=== PATIENT | female | born 1990 | race African-American/Black ===

== ENCOUNTER 2017-05-12 02:50 | Emergency (ER) | payer BC ==
[2017-05-12] MEDS ORDERED: NORMAL SALINE 1,000 ML IV ONE ×2 (03:08→03:13)
[2017-05-12] MEDS ORDERED: diphenhydrAMINE HCL 50 MG/ML VIAL IV ONE (03:09)
[2017-05-12] MEDS ORDERED: METOCLOPRAMIDE HCL 5 MG/ML VIAL IV ONE (03:09)
[2017-05-12] MEDS ORDERED: diphenhydrAMINE HCL 50 MG/ML VIAL ONE (03:18)
[2017-05-12] MEDS ORDERED: METOCLOPRAMIDE HCL 5 MG/ML VIAL ONE (03:18)
--- NOTE | 2017-05-12 03:20 | ERNOTE ---
Medical Problem HPI - Narrative Date of Service: 05/12/17 - General Chief Complaint: Nausea/Vomiting Source: patient - Immun/Allergies/Home Medications Immunizations: IMMUNIZATION HX Immunizations Up to Date Yes History of Influenza Vaccine Yes Hx Pneumococcal Vaccination No Allergies/Adverse Reactions: Allergies No Known Allergies Allergy (Verified 03/03/15 16:23) Home Medications: HOME MEDICATIONS Vit#96/Ferrous Fum/FA [ S] 1 tab PO DAILY 04/17/13 [Last Taken 07/18/15 21:00 1 tab] - History of Present History Narrative: Complaints of N/V since Saturday. Denies any fevers, sometimes has chills. Currently 7 weeks and has been having morning sickness. No history of dysuria or frequency. Has been feeling fatigued, and light headed with standing. Timing: constant Severity: moderate Modifying Factors - (Improves): Present: other - nithing Modifying Factors - (Worsens): Present: movement Review of Systems - Review of Systems Constitutional: Present: fatigue EYE: Present: no symptoms reported ENT: Present: no symptoms reported Respiratory: Present: no symptoms reported Cardiology: Present: no symptoms reported Gastrointestinal/Abdominal: Present: no symptoms reported Genitourinary: Present: no symptoms reported Musculoskeletal: Present: no symptoms reported Skin: Present: no symptoms reported Neurological: Present: no symptoms reported Endocrine: Present: no symptoms reported Hematologic/Lymphatic: Present: no symptoms reported Psych: Present: no symptoms reported - Patient's Past Medical History Patient History - Medical: No pertinent hx Patient History - Cardiac/Respiratory: No pertinent hx Patient History - Cancer: No Hx of Cancer Patient History - Surgical Procedures: No surgical history Patient History - Other: None LMP (females 10-50): - Family History Grandfather-Maternal Family History - Medical: - Social History Living Situations: home Abuse History: No History of abuse Psych History: No pertinent hx Smoking Status: Never smoker Have you smoked in the past 12 months: No Do you dip or chew tobacco: No Alcohol Use: none Drug Use: none - Immunizations Immunizations Up to Date: Yes Hx Pneumococcal Vaccination: No History of Influenza Vaccine: Yes Physical Exam - Physical Exam Eye Exam: Normal inspection: bilateral Ears, Nose, Throat: Present: normal ENT inspection Neck: Present: normal inspection Respiratory: Present: no respiratory distress Cardiovascular/Chest: Present: regular rate, rhythm Gastrointestinal/Abdominal: Present: nontender Back Exam: Present: normal inspection Extremity Exam: Present: normal inspection Neurological Exam: Present: alert, oriented, normal mood/affect Skin Exam: Present: normal color Pelvic Exam: Present: discharge - cervix was closed. ED Progress - Results and Orders Patient's Lab Results:: I have reviewed the patient's lab results. - Vital Signs Patient's Vital Signs:: I have reviewed the patient's vital signs. Vital Signs: Vital Signs 05/12/17 02:55 Temperature 36.5 C Pulse Rate 82 Respiratory 16 Rate Blood Pressure 130/71 O2 Sat by Pulse 99 Oximetry - Progress/Reassessment Chief Complaint: Nausea/Vomiting Progress:: Improved Progress Note-Subjective: 05/12/17 03:18 Feeling better. Given two liters of NS, Reglan 15 mg IV, and Diphenhydramine 25 mg IV. 05/12/17 07:23 The clean catch sample was inadequate. The first time nursing attempted to obtain a cathed specimen it was noted that there was a discharge that prevented visualization of the urethra. A vaginal exam was done and GC/Chlamydia/Wet prep samples were obtained. 05/12/17 08:35 No further vomiting while in the ED. She was able to drink fluids without difficulty. Departure - Departure Clinical Impression: Hyperemesis gravidarum Condition: Good Instructions: Eating Plan for Hyperemesis Gravidarum Print Language: Latvian Referrals: Bubba Sams DO [Staff Physician] -
[2017-05-12 03:35] LABS: Anion Gap 21.7 mmol/L (6.8-13.8); BUN/Creatinine Ratio 17.1 (9.0-21.6); Carbon Dioxide 18.8 mmol/L (24-32.6); Potassium 3.5 mmol/L (3.4-4.6)
[2017-05-12 05:40] LABS: Urine Bilirubin 3 mg/dl (NEGATIVE); Urine Blood 25 /ul (NEGATIVE); Urine Ketone Large mg/dL (NEGATIVE); Urine Nitrite Negative (NEGATIVE); Urine Protein 100 mg/dL (NEGATIVE); Urine Specific Gravity >=1.030 SP.GR. (1.005-1.010)
[2017-05-12 05:52] LABS: Urine Appearance Clear; Urine Color Orange; Urine RBC 0-5 /hpf (0-5); Urine WBC 0-5 /hpf (0-5)
[2017-05-12 05:53] LABS: Urine Bacteria 3+
[2017-05-12 07:57] LABS: Urine Bilirubin 3 mg/dl (NEGATIVE); Urine Ketone Large mg/dL (NEGATIVE); Urine Nitrite Negative (NEGATIVE); Urine Protein 30 mg/dL (NEGATIVE); Urine Specific Gravity >=1.030 SP.GR. (1.005-1.010); Urine pH 5.5 pH (5.0-7.0)
[2017-05-12 08:12] LABS: Urine Amorphous Sediment Moderate - 2+ (NONE-FEW); Urine Appearance Cloudy; Urine Bacteria 2+; Urine Blood 10 /ul (NEGATIVE); Urine Color Yellow; Urine RBC 0-5 /hpf (0-5); Urine WBC 0-5 /hpf (0-5)
[2017-05-12 08:44] VITALS: BP 106/64
== END 2017-05-12 08:43 | disposition home or self-care (01) ==
LOC: ER 02:50
PROC: 0T9B7ZZ Drainage of Bladder, Via Natural or Artificial Opening (ICD-10-PCS; principal; 2017-05-12)
DX: O21.0 Mild hyperemesis gravidarum (principal); Z3A.01 Less than 8 weeks gestation of pregnancy; Z33.1 Pregnant state, incidental

== ENCOUNTER 2017-06-14 12:41 | Inpatient (IN) | payer BC ==
[2017-06-14] MEDS ORDERED: NORMAL SALINE 1,000 ML IV ONE ×2 (13:17→14:47)
[2017-06-14 13:38] LABS: Hematocrit 33.9 % (37.0-47.0); Hemoglobin 12.4 gm/dL (12.5-16.0); Mean Cell Volume 80.5 fl (78-100); Mean Corpuscular Hemoglobin 29.5 pg (27-31); Mean Corpuscular Hgb Conc 36.6 g/dl (32-36); Mean Platelet Volume 11.4 fl (6.0-9.5); Neutrophil # 3.8 K/mm3 (1.3-6.0); Neutrophil % 62.2 % (42-75.0); Platelet Count 202 K/mm3 (150-450); Red Blood Count 4.21 M/mm3 (4.2-5.4); Red Cell Distribution Width 12.5 % (11.5-14.0); White Blood Count 6.1 K/mm3 (4.0-10.5)
[2017-06-14 13:42] LABS: Urine Bilirubin 3 mg/dl (NEGATIVE); Urine Ketone Large mg/dL (NEGATIVE); Urine Nitrite Negative (NEGATIVE); Urine Protein 30 mg/dL (NEGATIVE); Urine Specific Gravity 1.025 SP.GR. (1.005-1.010); Urine Urobilinogen 4 EU/dl (NORMAL); Urine pH 6.5 pH (5.0-7.0)
[2017-06-14 13:48] LABS: Prothrombin Time (Patient) 11.5 Seconds (9.4-11.4)
[2017-06-14 13:49] LABS: Urine Appearance Slightly Cloudy; Urine Bacteria 2+; Urine Blood 5 /ul (NEGATIVE); Urine Color Amber
[2017-06-14 13:49] LABS: INR 1.11 INR (0.90-1.10)
[2017-06-14 13:54] LABS: Cocaine Ur Negative (NEGATIVE); Urine Barbiturate Negative (NEGATIVE); Urine Benzodiazepines Negative (NEGATIVE); Urine Opiates Negative (NEGATIVE); Urine PCP Negative (NEGATIVE); Urine THC Negative (NEGATIVE)
[2017-06-14 13:55] LABS: ALT 117 U/L (19-67); AST 53 U/L (0-48); Albumin * 3.5 gm/dl (3.4-5.0); Alkaline Phosphatase * 78 U/L (50-170); BUN/Creatinine Ratio 7.8 (9.0-21.6); Bilirubin, Total 2.1 mg/dL (0.0-1.1); Blood Urea Nitrogen 4 mg/dL (3-23); Ca. Corrected For Albumin 9.4 mg/dL (8.4-10.2); Calcium * 9.3 mg/dL (7.9-10.9); Chloride 99 mmol/L (97-106); Glucose * 82 mg/dL (70-110); Potassium 3.1 mmol/L (3.4-4.6); Sodium 134 mmol/L (132-142); Total Protein 7.4 gm/dL (6.2-8.2); Troponin I Less than 0.017 ng/ml (0.00-0.10)
[2017-06-14 14:00] LABS: Anion Gap 19.2 mmol/L (6.8-13.8); Carbon Dioxide 18.9 mmol/L (24-32.6)
[2017-06-14 14:07] LABS: Iron 69 mcg/dL (35-120); Transferrin Sat. (% Sat.) 28 % (15-55)
[2017-06-14] MEDS ORDERED: THIAMINE HCL 100 MG in NORMAL SALINE 50 ML IV ONE (14:09)
[2017-06-14] MEDS ORDERED: ceFAZolin SODIUM/DEXTROSE,ISO 2 GM/50 ML BAG IV ONE (14:14)
[2017-06-14] MEDS ORDERED: DEXTROSE 5% IV ONE ×2 (14:30)
[2017-06-14] MEDS ORDERED: POTASSIUM CHLORIDE IV ONE ×2 (14:30)
[2017-06-14] MEDS ORDERED: WATER IV ONE ×2 (14:30)
[2017-06-14] MEDS: DEXTROSE 5%-LACTATED RINGERS 1,000 ML IV PRN ×2 (15:34→20:20)
[2017-06-14] MEDS ORDERED: ONDANSETRON HCL/PF 2 MG/ML VIAL IV PRN ×2 (16:26→22:37)
[2017-06-14] MEDS ORDERED: BISACODYL 10 MG SUPP.RECT RC ONE (22:34)
[2017-06-14] MEDS ORDERED: RINGER'S SOLUTION,LACTATED 1,000 ML IV ONE (22:35)
[2017-06-14] MEDS: METOCLOPRAMIDE HCL 5 MG/ML VIAL IV SCH (23:03)
[2017-06-15] MEDS: METOCLOPRAMIDE HCL 5 MG/ML VIAL IV SCH ×2 (03:46→10:08)
[2017-06-15 05:49] LABS: Hematocrit 29.1 % (37.0-47.0); Hemoglobin 10.5 gm/dL (12.5-16.0); Mean Cell Volume 81.7 fl (78-100); Mean Corpuscular Hemoglobin 29.5 pg (27-31); Mean Corpuscular Hgb Conc 36.1 g/dl (32-36); Mean Platelet Volume 11.3 fl (6.0-9.5); Neutrophil # 3.1 K/mm3 (1.3-6.0); Platelet Count 147 K/mm3 (150-450); Red Blood Count 3.56 M/mm3 (4.2-5.4); Red Cell Distribution Width 12.4 % (11.5-14.0); White Blood Count 5.5 K/mm3 (4.0-10.5)
[2017-06-15] MEDS ORDERED: RINGER'S SOLUTION,LACTATED 1,000 ML IV PRN (05:54)
[2017-06-15 06:05] LABS: Albumin * 2.7 gm/dl (3.4-5.0); Anion Gap 12.6 mmol/L (6.8-13.8); Bilirubin, Total 1.8 mg/dL (0.0-1.1); Ca. Corrected For Albumin 9.1 mg/dL (8.4-10.2); Calcium * 8.4 mg/dL (7.9-10.9); Carbon Dioxide 24.4 mmol/L (24-32.6); Magnesium 1.2 mg/dL (1.2-2.8); Total Protein 5.7 gm/dL (6.2-8.2)
[2017-06-15 07:51] LABS: Urine Bilirubin 3 mg/dl (NEGATIVE); Urine Blood Negative /ul (NEGATIVE); Urine Ketone Large mg/dL (NEGATIVE); Urine Nitrite Negative (NEGATIVE); Urine Protein Negative (NEGATIVE); Urine Specific Gravity 1.015 SP.GR. (1.005-1.010); Urine Urobilinogen >=8.0 EU/dl (NORMAL); Urine pH 5.5 pH (5.0-7.0)
[2017-06-15 08:10] LABS: Urine Appearance Slightly Cloudy; Urine Bacteria 1+; Urine Color Orange; Urine RBC None Seen /hpf (0-5); Urine WBC TRACE /hpf (0-5)
[2017-06-15] MEDS: POTASSIUM CHLORIDE 40 MEQ in DEXTROSE 5%-LACTATED RINGERS 1,000 ML IV SCH ×2 (08:39→16:12)
[2017-06-15] MEDS ORDERED: POTASSIUM CHLORIDE 20 MEQ TABLET.SA PO ONE (10:06)
[2017-06-15] MEDS ORDERED: MAGNESIUM HYDROXIDE 30 ML UDC PO ONE (10:07)
--- NOTE | 2017-06-15 10:54 | PN ---
Subjective - Date and Time Seen Date: 06/15/17 Subjective Narrative: progress note Hospital day 1 at 12.1 weeks. admitted for severe hyperemesis gravidarum, dehydration, hypokalemia and ketonuria. has lost 32 lbs since . has not had a bowel movement for 3 weeks. ran out of her medication phenergan supp and zofran po. unable to keep anything down. admitssion labs: K 3.1, mild elevation of liver enzymes. urine concentrated, saba color with large ketone, RBC 5-10 and WBC 10-25. since admitted. has received about 4 liter of iv fluid with NS, D5LR and LR. has received the following medications: thiamine 100 mg iv. 40 mEq RODOLFO by iv drip. 2 g of ancef iv for possible UTI. reglan 10 mg iv q6h. zofran 8 mg iv q6h prn dulcolax suppository Patient is doing better. has voded several times, but urine still looked concentrated. able to tolerate small amount of meals (bread, cracker, soap and juice) had a very small BM after dulcolax. Exam: vitals stable Gen: NAD lungs: clear. Abdomen: non-distended, soft. non-tender FHR: 160s Ext: no edema or calf tenderness repeat labs today: K still low 3.0 u/a still showed large ketone. Plan: continue IV hydration with D5LR and replacement of KCL both by Iv and oral. thiamine 100 mg iv continue reglan and zofran iv. give a dose of milk of magnesia for constipation. will evaluate for possible discharge if improved. Vasile Rodriguez Md Objective - Vitals Vitals: Last Vital Signs Temp 37 C 06/15/17 08:11 Pulse 84 06/15/17 08:11 Resp 18 06/15/17 08:11 BP 100/60 06/15/17 08:11 Pulse Ox 99 06/15/17 08:11 - Abnormal Lab Findings Abnormal Lab Findings: Abnormal Lab Results 06/15/17 06/15/17 06/15/17 Range/Units 05:25 05:25 07:30 RBC 3.56 L (4.2-5.4) M/mm3 Hgb 10.5 L (12.5-16.0) gm/dL Hct 29.1 L (37.0-47.0) % MCHC 36.1 H (32-36) g/dl Plt Count 147 L (150-450) K/mm3 MPV 11.3 H (6.0-9.5) fl Potassium 3.0 L (3.4-4.6) mmol/L BUN 1 L D (3-23) mg/dL Est GFR (Non-Af Amer) 189 H (60-130) mL/min BUN/Creatinine Ratio 2.0 L (9.0-21.6) Total Bilirubin 1.8 H (0.0-1.1) mg/dL ALT 90 H (19-67) U/L Total Protein 5.7 L (6.2-8.2) gm/dL Albumin 2.7 L (3.4-5.0) gm/dl Urine Bilirubin 3 H (NEGATIVE) mg/dl Urine Ictotest Positive H (NEGATIVE) Urine Urobilinogen >=8.0 H (NORMAL) EU/dl Ur Leukocyte Esterase 25 H (NEGATIVE) /ul Ur Epithelial Cells 5-10 H (0-5) /hpf Urine Bacteria 1+ H (NONE)
[2017-06-15] MEDS ORDERED: THIAMINE HCL 100 MG in NORMAL SALINE 50 ML IV ONE (11:00)
[2017-06-15] MEDS ORDERED: ONDANSETRON HCL/PF 2 MG/ML VIAL IV SCH (11:30)
[2017-06-15] MEDS ORDERED: DEXTROSE 5%-LACTATED RINGERS 1,000 ML IV PRN (13:49)
[2017-06-15 14:15] LABS: Urine Appearance Clear; Urine Bilirubin Negative (NEGATIVE); Urine Blood Negative /ul (NEGATIVE); Urine Color Yellow; Urine Ketone Negative (NEGATIVE); Urine Nitrite Negative (NEGATIVE); Urine Protein Negative (NEGATIVE); Urine pH 8.5 pH (5.0-7.0)
[2017-06-15 14:16] LABS: Urine Bacteria None Seen; Urine RBC None Seen /hpf (0-5); Urine Urobilinogen 4 EU/dl (NORMAL); Urine WBC 0-5 /hpf (0-5)
[2017-06-15] MEDS ORDERED: RINGER'S SOLUTION,LACTATED 1,000 ML IV ONE (15:28)
[2017-06-15] MEDS: ONDANSETRON HCL 4 MG TABLET PO SCH (17:24)
[2017-06-15] MEDS: METOCLOPRAMIDE HCL 10 MG TABLET PO SCH (20:34)
[2017-06-15] MEDS: POTASSIUM CHLORIDE 20 MEQ TABLET.SA PO SCH (20:34)
[2017-06-15] MEDS: RINGER'S SOLUTION,LACTATED 1,000 ML IV PRN (23:01)
[2017-06-16] MEDS: ONDANSETRON HCL 4 MG TABLET PO SCH ×3 (00:59→13:18)
[2017-06-16 05:43] LABS: Hematocrit 31.1 % (37.0-47.0); Hemoglobin 10.8 gm/dL (12.5-16.0); Mean Cell Volume 83.8 fl (78-100); Mean Corpuscular Hemoglobin 29.1 pg (27-31); Mean Corpuscular Hgb Conc 34.7 g/dl (32-36); Mean Platelet Volume 10.9 fl (6.0-9.5); Neutrophil # 2.3 K/mm3 (1.3-6.0); Neutrophil % 51.9 % (42-75.0); Platelet Count 156 K/mm3 (150-450); Red Blood Count 3.71 M/mm3 (4.2-5.4); White Blood Count 4.3 K/mm3 (4.0-10.5)
[2017-06-16 05:57] LABS: Albumin * 2.7 gm/dl (3.4-5.0); Anion Gap 12.5 mmol/L (6.8-13.8); BUN/Creatinine Ratio 5.3 (9.0-21.6); Bilirubin, Total 0.9 mg/dL (0.0-1.1); Ca. Corrected For Albumin 8.9 mg/dL (8.4-10.2); Calcium * 8.2 mg/dL (7.9-10.9); Potassium 3.5 mmol/L (3.4-4.6); Total Protein 5.8 gm/dL (6.2-8.2)
[2017-06-16] MEDS: RINGER'S SOLUTION,LACTATED 1,000 ML IV PRN (06:41)
[2017-06-16] MEDS ORDERED: THIAMINE HCL 100 MG in NORMAL SALINE 50 ML IV ONE (07:00)
[2017-06-16 07:52] LABS: Urine Appearance Clear; Urine Bacteria 2+; Urine Bilirubin Negative (NEGATIVE); Urine Blood Negative /ul (NEGATIVE); Urine Color Yellow; Urine Ketone Negative (NEGATIVE); Urine Nitrite Negative (NEGATIVE); Urine Protein Negative (NEGATIVE); Urine RBC 0-5 /hpf (0-5); Urine Specific Gravity 1.015 SP.GR. (1.005-1.010); Urine WBC 0-5 /hpf (0-5)
[2017-06-16] MEDS: POTASSIUM CHLORIDE 20 MEQ TABLET.SA PO SCH (08:33)
[2017-06-16] MEDS: METOCLOPRAMIDE HCL 10 MG TABLET PO SCH (08:33)
[2017-06-16 10:40] VITALS: BP 108/57
--- NOTE | 2017-06-16 11:27 | PN ---
Subjective - Date and Time Seen Date: 06/16/17 Subjective Narrative: Hospital day 2 at 12.2 weeks. admitted for severe hyperemesis gravidarum, dehydration, hypokalemia and ketonuria. received iv hydration with NS, D5LR, LR, replacement of KCL received iv thiamine iv zofran and iv reglan switched to oral zofran and oral reglan. doing well on oral medications. able to tolerated diet yesterday and today. had bassam bowel movement today. labs: K now normal 3.5 u/a large ketone resolved and now negative. liver emzymes improved. Exam: NAD and well appearing. Abdomen: non-distended, soft, non-tender. Extremities: no edema, no calf tenderness. heart tone: 160s. A: severe hyperemesis resolved. able to tolerate oral and food. will discharge on po medications. Vasile Rodriguez MD Objective - Vitals Vitals: Last Vital Signs Temp 36.8 C 06/16/17 10:39 Pulse 80 06/16/17 10:39 Resp 16 06/16/17 10:39 BP 108/57 06/16/17 10:39 Pulse Ox 98 06/16/17 10:39 - Abnormal Lab Findings Abnormal Lab Findings: Abnormal Lab Results 06/15/17 06/15/17 06/16/17 Range/Units 12:48 13:57 05:35 RBC 3.71 L (4.2-5.4) M/mm3 Hgb 10.8 L (12.5-16.0) gm/dL Hct 31.1 L (37.0-47.0) % MPV 10.9 H (6.0-9.5) fl Potassium 3.3 L (3.4-4.6) mmol/L Carbon Dioxide (24-32.6) mmol/L Est GFR (Non-Af Amer) (60-130) mL/min BUN/Creatinine Ratio (9.0-21.6) ALT (19-67) U/L Total Protein (6.2-8.2) gm/dL Albumin (3.4-5.0) gm/dl Urine pH (5.0-7.0) pH Urine Glucose (UA) 250 H (NEGATIVE) mg/dL Urine Urobilinogen 4 H (NORMAL) EU/dl Ur Epithelial Cells (0-5) /hpf Urine Bacteria (NONE) 06/16/17 06/16/17 Range/Units 05:35 06:35 RBC (4.2-5.4) M/mm3 Hgb (12.5-16.0) gm/dL Hct (37.0-47.0) % MPV (6.0-9.5) fl Potassium (3.4-4.6) mmol/L Carbon Dioxide 23.0 L (24-32.6) mmol/L Est GFR (Non-Af Amer) 166 H (60-130) mL/min BUN/Creatinine Ratio 5.3 L (9.0-21.6) ALT 85 H (19-67) U/L Total Protein 5.8 L (6.2-8.2) gm/dL Albumin 2.7 L (3.4-5.0) gm/dl Urine pH 8.0 H (5.0-7.0) pH Urine Glucose (UA) (NEGATIVE) mg/dL Urine Urobilinogen 2.0 H (NORMAL) EU/dl Ur Epithelial Cells 5-10 H (0-5) /hpf Urine Bacteria 2+ H (NONE)
--- NOTE | 2017-06-16 11:42 | DS ---
(1) Hypokalemia Problem: Acute (2) Hyperemesis gravidarum with dehydration Problem: Acute (3) Ketonuria Problem: Acute (4) Elevated liver enzymes Problem: Acute (5) Constipation Problem: Acute Description of Stay: patient admitted at 12 weeks for severe hyperemesis unable to tolerate any food with dehydration, hypokalemia, and ketonuria. she was given iv hydration, correction of electrolytes, iv and oral antiemetics. Her dehydration resolved. Low potassium and ketonuria resolved. She was able to tolerate oral and diet and have normal bowel movement. Procedures Performed: none Discharge Disposition: Home self care Disposition: Home self-care Condition: Good Discharge Activity: Activity as tolerated Discharge Diet: General/regular food Referrals: Bubba Sams DO [Primary Care Provider] - Prescriptions (Any new or edited meds): Metoclopramide HCl [Reglan] 10 mg PO Q8H PRN #28 tablet PRN Reason: Nausea And Vomiting Complete Home Medications List: Complete Home Medication List: Vit#96/Ferrous Fum/FA [ S] 1 tab PO DAILY 04/17/13 Ondansetron HCl [Zofran] 1 tab PO Q6H PRN #28 tablet 06/14/17 Ondansetron [Zofran Odt] 8 mg PO Q6H 06/14/17 Promethazine HCl [Phenergan Suppository] 12.5 mg RC Q6H PRN #28 supp.rect Promethazine HCl [Phenergan Suppository] 25 mg RC Q6H PRN 06/14/17 Metoclopramide HCl [Reglan] 10 mg PO Q8H PRN #28 tablet 06/16/17
--- NOTE | 2017-06-28 09:52 | ERNOTE ---
Abdominal HPI - Narrative Date of Service: 06/14/17 - General Chief Complaint: Dyspnea Time Seen by Provider: 06/14/17 13:19 Source: patient Exam Limitations: no limitations - Immun/Allergies/Home Medications Immunizatons: IMMUNIZATION HX Immunizations Up to Date Yes History of Influenza Vaccine Yes Hx Pneumococcal Vaccination No Allergies/Adverse Reactions: Allergies No Known Allergies Allergy (Verified 06/14/17 15:55) Home Medications: HOME MEDICATIONS Vits96/Iron Fum/Folic [ S] 1 tab PO DAILY 04/17/13 [Last Taken 05/03/17] Ondansetron HCl [Zofran] 1 tab PO Q6H PRN #28 tablet 06/14/17 [Last Taken Unknown] Ondansetron [Zofran Odt] 8 mg PO Q6H 06/14/17 [Last Taken 06/13/17 17:00] Promethazine HCl [Phenergan Suppository] 12.5 mg RC Q6H PRN #28 supp.rect [Last Taken Unknown] Promethazine HCl [Phenergan Suppository] 25 mg RC Q6H PRN 06/14/17 [Last Taken 06/12/17] Metoclopramide HCl [Reglan] 10 mg PO Q8H PRN #28 tablet 06/16/17 [Last Taken Unknown] - History of Present Illness Narrative: patient states she has had vomiting and SOB for a fe days. has been seen by her pcp for nausea r/t her pregnance. continues to feel ill. unable to keep down food or liquids. Timing: constant Quality: mild Activities at Onset: activity, rest Modifying Factors - (Worsens): Present: coughing, vomiting Associated Symptoms: Present: chest pain, fatigue, loss of appetite, shortness of breath, weakness Prior Abdominal Problems: Present: none Prior Treatment: Present: recently seen, treated by physician Review of Systems - Review of Systems Constitutional: Present: See HPI EYE: Present: no symptoms reported ENT: Present: no symptoms reported Respiratory: Present: See HPI, shortness of breath Cardiology: Present: See HPI, chest pain. Absent: palpitations, syncope, edema Gastrointestinal/Abdominal: Present: See HPI, nausea, vomiting, eating less, drinking less. Absent: constipation Genitourinary: Present: dysuria Musculoskeletal: Present: See HPI, muscle pain Skin: Present: no symptoms reported Neurological: Present: no symptoms reported Endocrine: Present: no symptoms reported Hematologic/Lymphatic: Present: no symptoms reported Psych: Present: no symptoms reported All Other Systems: All systems neg except as marked - Patient's Past Medical History Patient History - Medical: No pertinent hx Patient History - Cardiac/Respiratory: No pertinent hx Patient History - Cancer: No Hx of Cancer Patient History - Surgical Procedures: No surgical history Patient History - Other: None - Family History Grandfather-Maternal Family History - Medical: Family History - Cardiac/Respiratory: History Unknown Family History - Cancer: Lung Mother Family History - Medical: No pertinent hx Family History - Cardiac/Respiratory: No pertinent hx Family History - Cancer: No pertinent family hx - Social History Living Situations: spouse Abuse History: No History of abuse Psych History: No pertinent hx Smoking Status: Never smoker Have you smoked in the past 12 months: No Do you dip or chew tobacco: No Alcohol Use: none Drug Use: none - Immunizations Immunizations Up to Date: Yes Hx Pneumococcal Vaccination: No History of Influenza Vaccine: Yes Physical Exam - Physical Exam General Appearance: Present: wd/wn, alert, no apparent distress Head Exam: Present: normal inspection, no evidence of injury Eye Exam: Normal inspection: bilateral, PERRL: bilateral, EOMI: bilateral Ears, Nose, Throat: Present: normal ENT inspection Neck: Present: normal inspection Respiratory: Present: no respiratory distress, normal breath sounds, no accessory muscle use, lungs clear, chest tenderness Cardiovascular/Chest: Present: regular rate, rhythm, no murmur, normal peripheral pulses Gastrointestinal/Abdominal: Present: normal bowel sounds, nondistended, soft, tenderness Back Exam: Present: normal inspection, normal range of motion, no CVA tenderness , no vertebral tenderness Extremity Exam: Present: normal inspection, non-tender, normal range of motion, no edema Neurological Exam: Present: alert, oriented, normal mood/affect, no motor/ sensory deficits Skin Exam: Present: normal color, warm/dry Lymphatic Exam: Present: no adenopathy ED Progress - Results and Orders Patient's Lab Results:: I have reviewed the patient's lab results. Results and Orders: abnormal liver enzymes elevated, UTI - Vital Signs Patient's Vital Signs:: I have reviewed the patient's vital signs. - Progress/Reassessment Chief Complaint: Dyspnea Progress:: Unchanged Plan - Plan Plan: spoke with OB agrees to admit for obv, rehydrate and tx for UTI Departure - Departure Clinical Impression: Hyperemesis gravidarum with dehydration Disposition: [facility] Condition: Good
== END 2017-06-16 13:30 | disposition home or self-care (01) | DRG 781 ==
LOC: ER 12:41 → MS 14:21 → OBSVTOIN 06-15 11:25
PROVIDERS: ADMIT Obstetrics & Gynecology; ATTEND Obstetrics & Gynecology
DX: O21.1 Hyperemesis gravidarum with metabolic disturbance (principal); K59.00 Constipation, unspecified; R94.5 Abnormal results of liver function studies; Z3A.12 12 weeks gestation of pregnancy
CPT/HCPCS: 36415; 80053; 80307; 81001; 83540; 83550; 83605; 83735; 84132; 84484; 85025; 85379; 85610; 87086; 93005; 94760; 96360; 96365; 96367; 99285; G0378; J2405

== ENCOUNTER 2017-12-23 00:01 | Inpatient (IN) | payer BC ==
[2017-12-23] MEDS ORDERED: ONDANSETRON HCL/PF 2 MG/ML VIAL IV PRN ×2 (00:04→10:24)
[2017-12-23] MEDS ORDERED: RINGER'S SOLUTION,LACTATED 1,000 ML IV ONE (00:04)
[2017-12-23] MEDS ORDERED: OXYTOCIN/DEXTROSE 5%-WATER 30 UNITS/500 ML BAG IV ONE ×2 (00:04→16:35)
[2017-12-23] MEDS ORDERED: BUPIVACAINE HCL/0.9 % NACL/PF 250 ML EP PRN (10:24)
[2017-12-23] MEDS ORDERED: NALOXONE HCL 1 MG/1 ML SYRG IV PRN (10:24)
[2017-12-23] MEDS ORDERED: BUPIVACAINE HCL/PF 30 ML VIAL EP SCH (10:30)
--- NOTE | 2017-12-23 10:52 | OR ---
Anesthesia Procedure Note - Anesthesia Procedure Note Date of Service: 12/23/17 Narrative: Vital Signs - Last Taken Temp 37 C 12/23/17 10:26 Pulse 67 12/23/17 10:26 Resp 20 12/23/17 10:26 BP 111/67 12/23/17 10:26 Pulse Ox 99 12/23/17 10:26 12/23/17 10:52 ANESTHESIA PROCEDURE NOTE Date of Procedure: 12/23/2017. Time of procedure: 1030. Performed by: Daniele Renner CRNA Salvage Machine Operator: None. Preprocedure diagnosis: Active labor. Post procedure diagnosis: Same. Procedure: Insertion of labor epidural. Indications: The patient is a 27 -year-old female in active labor requesting labor epidural for pain management. Findings: See below. Details of the procedure: The patient was placed in a sitting position. DuraPrep as well as Betadine swabs X3 was applied to the patient's back. Patient was then draped in a sterile fashion. Lidocaine 1% was infiltrated to the skin and subcutaneous tissues at the level of the L3-4 interspace. The epidural space was identified using a 18-gauge Tuohy needle with loss-of- resistance technique. Epidural catheter was inserted to a depth of 10 centimeters at skin. Negative test dose was elicited using 3 mL of 1.5% preservative-free lidocaine plus epinephrine 1 200,000. The epidural catheter was then taped and secured in place. A loading dose of 8 mL of 0.25% preservative-free bupivacaine was administered to the epidural catheter after negative aspiration for blood and CSF. EBL: Minimal. Fluids: N/A. Specimen: N/A. Post procedure condition: The patient tolerated the procedure well. No complications were noted. Thank you for this consultation. Daniele Renner CRNA
--- NOTE | 2017-12-23 12:31 | PN ---
Progess Note - Interim Narrative: 12/23/17 12:29 Patient comfortable with epidural Vital signs stable. Pitocin at 12 mu/min. FHT: 130 baseline, reassuring Contractions q 2-3 min Cervix: Rim/-2, AROM around 9 AM with clear fluid Impression: Intrauterine at at 39 4/7 weeks, elective induction of labor Plan: Continue present plan
--- NOTE | 2017-12-23 15:26 | PN ---
Progess Note - Interim Narrative: 12/23/17 15:23 Patient comfortable with epidural. Complains of being tired Vital signs stable. Pitocin at 10 mu/min. FHT:150 baseline, frequent early decelerations with occasional variable deceleration. Contractions q 1-2 min Cervix: Complete/0 Impression: Intrauterine at 39-4/7 weeks, induction of labor, Plan: Patient has labored down for a couple hours, will now begin pushing
[2017-12-23] MEDS ORDERED: BENZOCAINE/MENTHOL 81 SPRAY CAN TP PRN (16:35)
[2017-12-23] MEDS ORDERED: GLYCERIN/WITCH HAZEL LEAF 40 APPL BOX TP PRN (16:35)
[2017-12-23] MEDS ORDERED: SENNOSIDES 8.6 MG TABLET PO PRN (16:35)
[2017-12-23] MEDS ORDERED: BISACODYL 10 MG SUPP.RECT RC PRN (16:35)
[2017-12-23] MEDS ORDERED: oxyCODONE HCL/ACETAMINOPHEN 1 TAB TABLET PO PRN (16:35)
[2017-12-23] MEDS ORDERED: HYDROCORTISONE 30 APPL TUBE TP PRN (16:35)
--- NOTE | 2017-12-23 16:42 | OR ---
Operative Report - Dictated Report Narrative: Delivery of viable female at 1620 on 12/23/2017 in KAYCE position with Apgars 9 and 9, weighing 3920 g with mild shoulder dystocia 2nd stage of labor: 3 hours 20 minutes Head/body interval: min/seconds Anesthesia: epidural Estimated weight: 3400 g Diabetes: No Attendants at : [OB: Bubba Sams, Ped: not present, Nurses: Sofiya Gallagher and Lana Hewitt, Others: Medical student Rikki Ivy Position of head at delivery: KAYCE left shoulder anterior Maneuvers used: Adela yes, Suprapubic pressure no, Wood's screw yes, Delivery of posterior shoulder no, Arm sweep no, Episiotomy no, Other: None Description: was gently rotated clockwise and counterclockwise rocking the anterior shoulder under the pubic bone moving all extremities at yes, Injuries noted: none Cord gases not obtained Mother's condition: no lacerations EBL: 100ml Mother informed of dystocia and potential sequelae. Recommendations for future pregnancies: Avoid vaginal delivery of infant as large as this one.
[2017-12-23] MEDS: IBUPROFEN 800 MG TABLET PO PRN (18:04)
[2017-12-23] MEDS: oxyCODONE HCL/ACETAMINOPHEN 1 TAB TABLET PO PRN ×2 (19:06→23:03)
[2017-12-23] MEDS: DOCUSATE SODIUM 100 MG CAPSULE PO SCH (21:25)
[2017-12-24] MEDS: oxyCODONE HCL/ACETAMINOPHEN 1 TAB TABLET PO PRN ×4 (03:32→21:55)
[2017-12-24] MEDS: IBUPROFEN 800 MG TABLET PO PRN ×2 (07:18→21:55)
[2017-12-24] MEDS: DOCUSATE SODIUM 100 MG CAPSULE PO SCH ×2 (09:24→20:17)
--- NOTE | 2017-12-24 12:04 | PN ---
Subjective - Date and Time Seen Date: 12/24/17 Time: 12:04 Objective - Vitals Vitals: Last Vital Signs Temp 36.6 C 12/24/17 07:20 Pulse 78 12/24/17 07:20 Resp 20 12/24/17 07:20 BP 107/60 12/24/17 07:20 Pulse Ox 98 12/24/17 07:20 Patient denies complaints. Lochia wnl Abdomen - soft, nontender Uterus - firm, at umbilicus - 1 No calf tenderness Impression: day #1 - s/p spontaneous vaginal delivery Plan: Continue routine care Cauti Physician Documentation - Urinary Catheter Management Urethral ([place]) Date of Insertion: 12/23/17 Time of Insertion: 11:00 Date of Removal: 12/23/17 Time of Removal: 16:05
[2017-12-25] MEDS: oxyCODONE HCL/ACETAMINOPHEN 1 TAB TABLET PO PRN (05:17)
[2017-12-25] MEDS: IBUPROFEN 800 MG TABLET PO PRN (05:17)
[2017-12-25] MEDS: DOCUSATE SODIUM 100 MG CAPSULE PO SCH (09:55)
[2017-12-25 11:32] VITALS: BP 111/55
--- NOTE | 2017-12-25 14:12 | PN ---
Subjective - Date and Time Seen Date: 12/25/17 Time: 14:12 Objective - Vitals Vitals: Last Vital Signs Temp 37.1 C 12/25/17 11:15 Pulse 67 12/25/17 11:15 Resp 16 12/25/17 11:15 BP 111/55 12/25/17 11:15 Pulse Ox 99 12/25/17 11:15 Patient denies complaints. Lochia wnl Abdomen - soft, nontender Uterus - firm, at umbilicus - 2 No calf tenderness Impression: day #2 - s/p spontaneous vaginal delivery. Plan: Routine discharge instructions Cauti Physician Documentation - Urinary Catheter Management Urethral ([place]) Date of Insertion: 12/23/17 Time of Insertion: 11:00 Date of Removal: 12/23/17 Time of Removal: 16:05
== END 2017-12-25 13:47 | disposition home or self-care (01) | DRG 775 ==
LOC: OB 00:01 → UNDOADMIN 00:03 → OB 00:03
PROVIDERS: ADMIT Obstetrics & Gynecology; ATTEND Obstetrics & Gynecology
PROC: 10E0XZZ Delivery of Products of Conception, External Approach (ICD-10-PCS; principal; 2017-12-23)
PROC: 3E033VJ Introduction of Other Hormone into Peripheral Vein, Percutaneous Approach (ICD-10-PCS; 2017-12-23)
PROC: 10907ZC Drainage of Amniotic Fluid, Therapeutic from Products of Conception, Via Natural or Artificial Opening (ICD-10-PCS; 2017-12-23)
PROC: 4A1HXCZ Monitoring of Products of Conception, Cardiac Rate, External Approach (ICD-10-PCS; 2017-12-23)
PROC: 00HU33Z Insertion of Infusion Device into Spinal Canal, Percutaneous Approach (ICD-10-PCS; 2017-12-23)
DX: Z3A.40 40 weeks gestation of pregnancy; O99.02 Anemia complicating childbirth; O66.0 Obstructed labor due to shoulder dystocia; Z37.0 Single live birth; O76 Abnormality in fetal heart rate and rhythm complicating labor and delivery

== ENCOUNTER 2019-05-17 11:24 | Inpatient (IN) ==
[2019-05-17] MEDS ORDERED: ONDANSETRON HCL/PF 2 MG/ML VIAL IV ONE (11:51)
[2019-05-17] MEDS ORDERED: NORMAL SALINE 1,000 ML IV ONE ×2 (11:51→19:57)
[2019-05-17] MEDS ORDERED: MORPHINE SULFATE 4 MG/ML SYRG IV ONE (11:51)
--- NOTE | 2019-05-17 11:55 | ERNOTE ---
Chest Pain/Cardiac HPI Chief Complaint: Chest Pain Time Seen by Provider: 05/17/19 11:47 Source: patient, family Exam Limitations: no limitations Immunizations: IMMUNIZATION HX Immunizations Up to Date Yes History of Influenza Vaccine No Hx Pneumococcal Vaccination No Allergies/Adverse Reactions: Allergies No Known Allergies Allergy (Verified 05/17/19 11:40) Home Medications: HOME MEDICATIONS metoclopramide 10 mg tablet 10 mg PO ACHS #28 tab 05/11/19 [Last Taken Unknown] ondansetron 8 mg disintegrating tablet 8 mg PO TID PRN #21 tab 05/11/19 [Last Taken Unknown] Narrative: Patient presents with epigastric abdominal pain and substernal chest pain with nausea and vomiting. Patient states that she is short of breath and feels lightheaded. She rates his symptoms as at least moderate in severity. Timing: constant, intermittent Severity/Quality: moderate, burning Location: substernal, epigastric Activities at Onset: none Modifying Factors - Improves: Present: nothing Modifying Factors - Worsens: Present: nothing Nitro Today/Relief: no nitro taken today Aspirin Treatment Today: no aspirin today Associated Symptoms: Present: nausea, vomiting, other - Lightheadedness Prior Chest Pain/Cardiac Workup: Reports: no prior cardiac workup Prior Treatment: Reports: recently seen, treated by physician Review of Systems - Review of Systems Constitutional: Present: See HPI EYE: Present: no symptoms reported ENT: Present: no symptoms reported Respiratory: Present: no symptoms reported Cardiology: Present: no symptoms reported Gastrointestinal/Abdominal: Present: See HPI Genitourinary: Present: no symptoms reported Musculoskeletal: Present: no symptoms reported Skin: Present: no symptoms reported Neurological: Present: no symptoms reported Endocrine: Present: no symptoms reported Hematologic/Lymphatic: Present: no symptoms reported Psych: Present: no symptoms reported Medical History (Updated 05/11/19 @ 17:30 by Bubba Sams DO) Body piercing Onset Date: Unknown Tattoos Onset Date: Unknown Wears glasses Onset Date: Unknown Anemia in (Resolved) Onset Date: ~01/2013, 09/2017 Embryonic demise (Resolved) 9wk Gonorrhea (Resolved) Onset Date: ~05/2014 dx and treated in [place] History of delivery (Resolved) Onset Date: ~11/06/17 Premature delivery (Resolved) Onset Date: ~09/07/15 33 weeks PPROM. non-reassuring status Spontaneous Onset Date: ~2011 Twin , antepartum (Resolved) Onset Date: Unknown 11/23/2014 LMP: per US on 01/20/15 Intrauterine , 2 sacs A) viable IUP B) anembronic Surgical History: Surgical History (Updated 05/17/19 @ 11:42 by Nasima Tellez RN) Suction Curettage Onset Date: 04/29/19 Family History: Family History (Updated 03/27/19 @ 10:51 by Chaya Martinez RN) Grandmother , maternal Liver cancer Father Unknown family medical history Mother Alive and well Social History: Preferred Language Burmese Smoking Status Never smoker Abuse History No History of abuse Psych History No pertinent hx Alcohol Use none Drug Use none (Last Reviewed 05/11/19 @ 17:26 by Bubba Sams DO) No Social History Section defined Physical Exam - Physical Exam General Appearance: Present: wd/wn, alert, severe distress Head Exam: Present: normal inspection, no evidence of injury Eye Exam: Normal inspection: bilateral, PERRL: bilateral Ears, Nose, Throat: Present: normal ENT inspection, H, normal pharynx Neck: Present: normal inspection, nontender Respiratory: Present: no respiratory distress, normal breath sounds, no accessory muscle use, chest nontender, lungs clear Cardiovascular/Chest: Present: regular rate, rhythm, no murmur, normal peripheral pulses Gastrointestinal/Abdominal: Present: normal bowel sounds, nondistended, soft, no organomegaly, tenderness Rectal Exam: Present: deferred Pelvic Exam: Present: deferred Back Exam: Present: normal inspection, normal range of motion Extremity Exam: Present: normal inspection, non-tender, no edema, normal range of motion Neurological Exam: Present: alert, oriented, normal mood/affect Skin Exam: Present: normal color, warm/dry Lymphatic Exam: Present: no adenopathy Progress - Results and Orders Patient's Lab Results:: I have reviewed the patient's lab results. - Vital Signs Patient's Vital Signs:: I have reviewed the patient's vital signs. Vital Signs: Vital Signs 05/17/19 11:37 Temperature 36.8 C Pulse Rate 86 Respiratory Rate 14 Blood Pressure 138/70 O2 Sat by Pulse Oximetry 98 - X-Ray X-Ray #1 X-Ray: abdomen Interpretation: Reviewed by me - Progress/Reassessment Chief Complaint: Chest Pain Plan - Plan Plan: Recent had hyperemesis gravidarum during the prior to the spontaneous and I suspect that cyclical patterning has persisted. She is worked herself and now potassium of 2.2 with continuing abdominal pain. Patient will be admitted for IV hydration, nausea vomiting control and replacement of her potassium. Departure Clinical Impression: Hypokalemia Intractable nausea and vomiting Qualifiers: Vomiting type: unspecified Qualified Code(s): R11.2 - Nausea with vomiting, unspecified - Departure Disposition: Still a patient Condition: Fair
[2019-05-17 11:57] LABS: Hematocrit 35.1 % (37.0-47.0); Hemoglobin 12.5 gm/dL (12.5-16.0); Mean Cell Volume 80.9 fl (78-100); Mean Corpuscular Hemoglobin 28.8 pg (27-31); Mean Corpuscular Hgb Conc 35.6 g/dl (32-36); Mean Platelet Volume 10.1 fl (8-12.5); Neutrophil # 2.1 K/mm3 (1.3-6.0); Neutrophil % 48.2 % (42-75.0); Platelet Count 227 K/mm3 (150-450); Red Blood Count 4.34 M/mm3 (4.2-5.4); Red Cell Distribution Width 13.7 % (11.5-14.0); White Blood Count 4.3 K/mm3 (4.0-10.5)
[2019-05-17 12:15] LABS: ALT 63 U/L (19-67); AST 31 U/L (0-48); Albumin * 3.8 gm/dl (3.4-5.0); Alkaline Phosphatase * 81 U/L (50-170); BUN/Creatinine Ratio 2.7 (9.0-21.6); Bilirubin, Total 2.5 mg/dL (0.0-1.1); Blood Urea Nitrogen 2 mg/dL (3-23); Ca. Corrected For Albumin 9.1 mg/dL (8.4-10.2); Calcium * 9.3 mg/dL (7.9-10.9); Carbon Dioxide 25.2 mmol/L (24-32.6); Chloride 98 mmol/L (97-106); Glucose * 131 mg/dL (70-110); Sodium 139 mmol/L (132-142); Total Protein 7.3 gm/dL (6.2-8.2); Troponin I Less than 0.017 ng/mL (0.00-0.10)
[2019-05-17 12:18] LABS: Potassium 2.2 mmol/L (3.4-4.6)
[2019-05-17] MEDS ORDERED: POTASSIUM CHLORIDE 20 MEQ TABLET.SA PO ONE (12:22)
[2019-05-17] MEDS: POTASSIUM CHLORIDE IN WATER 100 ML IV SCH ×8 (12:57→22:07)
[2019-05-17] MEDS ORDERED: POTASSIUM CHLORIDE 40 MEQ/15 ML LIQUID PO ONE (14:30)
[2019-05-17] MEDS ORDERED: ONDANSETRON HCL/PF 2 MG/ML VIAL IV PRN (16:32)
[2019-05-17] MEDS ORDERED: ACETAMINOPHEN 325 MG TABLET PO PRN (17:45)
[2019-05-17] MEDS ORDERED: FAMOTIDINE 20 MG in DEXTROSE 5 % IN WATER 100 ML IV SCH ×2 (18:00)
--- NOTE | 2019-05-17 18:25 | HP ---
Chief Complaint - Chief Complaint Date of Service: 05/17/19 Time of Service: 18:01 Chief Complaint: I have had vomiting, chest pain, and weakness for the past few days History of Present Illness: 28-year-old female G4, P3 was evaluated in our ER due to worsening nausea and vomiting accompanied by weakness for the past 2 weeks and recurrent retrosternal chest pain that started yesterday. Patient underwent a DNC 2weeks ago after suffering a miscarriage and continues to have hyperemesis gravidarum despite the lossed . She also complains of chronic constipation that she has had for over 2 weeks and resultant abdominal discomfort. Patient denies taking any medication for constipation at home. She was treated with Zofran before arriving at the hospital but it did not adequately control her symptoms. Medical History (Updated 05/17/19 @ 14:15 by Dami Schwab DO) Body piercing Onset Date: Unknown Tattoos Onset Date: Unknown Wears glasses Onset Date: Unknown Anemia in (Resolved) Onset Date: ~01/2013, 09/2017 Embryonic demise (Resolved) 9wk Gonorrhea (Resolved) Onset Date: ~05/2014 dx and treated in [place] History of delivery (Resolved) Onset Date: ~11/06/17 Premature delivery (Resolved) Onset Date: ~07/25/15 33 weeks PPROM. non-reassuring status Spontaneous Onset Date: ~2011 Twin , antepartum (Resolved) Onset Date: Unknown 11/23/2014 LMP: per US on 01/20/15 Intrauterine , 2 sacs A) viable IUP B) anembronic Surgical History: Surgical History (Updated 05/17/19 @ 11:42 by Nasima Tellez RN) Suction Curettage Onset Date: 04/29/19 Family History: Family History (Updated 03/27/19 @ 10:51 by Chaya Martinez RN) Grandmother , maternal Liver cancer Father Unknown family medical history Mother Alive and well Social History: Patient Lives/Resources Home Utilized Occupation dietary service aide Preferred Language Slovak Do you have any hinduism or No cultural preference? Smoking Status Never smoker Have you smoked in the past 12 No months Do you dip or chew tobacco No Abuse History No History of abuse Psych History No pertinent hx Alcohol Use none Drug Use none (Last Reviewed 06/24/19 @ 17:26 by Bubba Sams DO) No Social History Section defined Peds Patient Hx - Developmental: No Pertinent Hx Peds Patient Hx - Medical: No Pertinent Hx Peds Patient Hx - Cardiac/Respiratory: No Pertinent Hx Peds Patient Hx - Surgical: No Surgical History Patient History - Cancer: No Hx of Cancer Review Of Systems (GEN) - Review of Systems Generalized/Overall Review: Present: Weakness EENTM: Present: No Symptoms Reported Respiratory: Present: No Symptoms Reported Cardiac: Present: Chest Pain Abdominal: Present: Nausea, Vomiting, Constipation Genitourinary: Present: No Symptoms Reported Musculoskeletal: Present: No Symptoms Reported Neurological: Present: No Symptoms Reported Skin: Present: No Symptoms Reported Endocrine: Present: Increased Hunger Immunizations: IMMUNIZATION HX Immunizations Up to Date Yes History of Influenza Vaccine No Hx Pneumococcal Vaccination No Allergies/Adverse Reactions: Allergies Allergy/AdvReac Type Severity Reaction Status Date / Time No Known Allergies Allergy Verified 05/17/19 11:40 Home Medications: HOME MEDICATIONS metoclopramide 10 mg tablet 10 mg PO ACHS #28 tab 05/11/19 [Last Taken Unknown] ondansetron 8 mg disintegrating tablet 8 mg PO TID PRN #21 tab 05/11/19 [Last Taken Unknown] Exam - Exam Vital Signs: Vital Signs - Last Taken Temp 36.9 C 05/17/19 17:52 Pulse 76 05/17/19 17:52 Resp 19 05/17/19 17:52 BP 104/68 05/17/19 17:52 Pulse Ox 100 05/17/19 14:45 Constitutional: Present: Alert, Oriented x3, Cooperative, Well developed, Well nourished, No distress, Young ENT Exam: Present: normal ENT inspection, hearing grossly normal, pharynx normal, TMs normal Eye Exam: bilateral eye: normal inspection, PERRL, EOMI Neck: Present: non-tender, full range of motion, supple, normal inspection, trachea midline Back Exam: Present: normal inspection, no CVA tenderness, no vertebral tenderness Breasts: Present: Exam deferred Respiratory: Present: chest non-tender, lungs clear, normal breath sounds, no respiratory distress, no accessory muscle use Cardiovascular/Chest: Present: normal peripheral pulses, regular rate, rhythm, no chest tenderness, no edema, no gallop, no JVD, no murmur Peripheral Pulses: carotid (R): 4+, carotid (L): 4+, femoral (R): 4+, femoral (L): 4+, dorsalis-pedis (R): 4+, dorsalis-pedis (L): 4+, radial (R): 4+, radial (L): 4+ Abdomen: Present: Normal bowel sounds, soft, nontender, nondistended, no rebound tenderness, no hepatospenomegaly, no masses /Rectal: Present: Exam deferred Extremity: Present: normal range of motion, non-tender, normal inspection, no pedal edema, no calf tenderness, normal capillary refill Skin Exam: Present: normal color, warm/dry, no cyanosis Lymphatic: Present: no adenopathy Neurologic: Present: superior court justice II-XII nml as tested, normal cerebellar test, no motor/sensory deficits, alert, normal mood/affect, oriented x 3 Appearance: Present: appropriate appearance, appropriate insight, neat, no memory impairment Eye contact: Present: cooperative, good eye contact, normal speech Thoughts: Present: normal thought pattern, no apparent hallucination Diagnostic Studies: Abnormal Lab Results 05/17/19 05/17/19 05/17/19 Range/Units 11:48 11:48 11:48 Hct 35.1 L (37.0-47.0) % Immature Gran % (Auto) 0.50 H (0.001-0.429) % Monocytes % 9.8 H (0.0-9) % Potassium 2.2 L* D (3.4-4.6) mmol/L Anion Gap 18.0 H (6.8-13.8) mmol/L BUN 2 L (3-23) mg/dL BUN/Creatinine Ratio 2.7 L (9.0-21.6) Random Glucose 131 H (70-110) mg/dL Total Bilirubin 2.5 H (0.0-1.1) mg/dL Maternal Serum HCG 17 H (0-6) mIU/mL Laboratory Results WBC 4.3 K/mm3 (4.0-10.5) 05/17/19 11:48 RBC 4.34 M/mm3 (4.2-5.4) 05/17/19 11:48 Hgb 12.5 gm/dL (12.5-16.0) 05/17/19 11:48 Hct 35.1 % (37.0-47.0) L 05/17/19 11:48 MCV 80.9 fl (78-100) 05/17/19 11:48 MCH 28.8 pg (27-31) 05/17/19 11:48 MCHC 35.6 g/dl (32-36) 05/17/19 11:48 RDW 13.7 % (11.5-14.0) 05/17/19 11:48 Plt Count 227 K/mm3 (150-450) 05/17/19 11:48 MPV 10.1 fl (8-12.5) 05/17/19 11:48 Immature Gran % (Auto) 0.50 % (0.001-0.429) H 05/17/19 11:48 Immature Gran # (Auto) 0.02 K/mm3 (0.000-0.0310) 05/17/19 11:48 48.2 % (42-75.0) 05/17/19 11:48 39.1 % (20-51) 05/17/19 11:48 9.8 % (0.0-9) H 05/17/19 11:48 1.9 % (0.0-3.0) 05/17/19 11:48 0.5 % (0.0-1.0) 05/17/19 11:48 Nucleated RBC % 0.0 k/mm3 (0-1) 05/17/19 11:48 2.1 K/mm3 (1.3-6.0) 05/17/19 11:48 1.68 k/mm3 (1.5-3.5) 05/17/19 11:48 0.4 k/mm3 (0.0-1.0) 05/17/19 11:48 0.1 k/mm3 (0.0-0.7) 05/17/19 11:48 Absolute Basophils 0.0 k/mm3 (0.0-0.1) 05/17/19 11:48 0.35 ug/mL (0.19-0.49) D 05/17/19 11:48 Sodium 139 mmol/L (132-142) 05/17/19 11:48 139 mmol/L (130-142) 05/17/19 11:48 Potassium 2.2 mmol/L (3.4-4.6) L* D 05/17/19 11:48 Chloride 98 mmol/L (97-106) 05/17/19 11:48 Carbon Dioxide 25.2 mmol/L (24-32.6) 05/17/19 11:48 18.0 mmol/L (6.8-13.8) H 05/17/19 11:48 BUN 2 mg/dL (3-23) L 05/17/19 11:48 0.73 mg/dL (0.4-1.4) 05/17/19 11:48 Est GFR (Non-Af Amer) 124 mL/min (60-130) 05/17/19 11:48 2.7 (9.0-21.6) L 05/17/19 11:48 131 mg/dL (70-110) H 05/17/19 11:48 Calcium 9.3 mg/dL (7.9-10.9) 05/17/19 11:48 Calcium Adj for Albumin 9.1 mg/dL (8.4-10.2) 05/17/19 11:48 2.5 mg/dL (0.0-1.1) H 05/17/19 11:48 AST 31 U/L (0-48) 05/17/19 11:48 ALT 63 U/L (19-67) 05/17/19 11:48 81 U/L (50-170) 05/17/19 11:48 Less than 0.017 ng/mL (0.00-0.10) 05/17/19 11:48 7.3 gm/dL (6.2-8.2) 05/17/19 11:48 3.8 gm/dl (3.4-5.0) 05/17/19 11:48 17 mIU/mL (0-6) H 05/17/19 11:48 Assessment/Plan - Narrative Narrative: It was evaluated and medical chart was reviewed and decision to admit for management of severe hypokalemia was taken. Once patient was on the floor she continued to complain of retrosternal chest pain and nausea so she was administered antiemetics and EKG was ordered. EKG results demonstrated T wave abnormalities and possible anterolateral wall ischemia, however initial troponin were negative. Repeat troponin has been ordered stat to rule out ongoing cardiac abnormalities and patient has been placed on telemetry for monitoring. We will continue to monitor her closely. - Assessment/Plan (1) Hypokalemia due to loss of potassium Problem: Acute (2) Intractable nausea and vomiting Problem: Acute Qualifiers: Vomiting type: unspecified Qualified Code(s): R11.2 - Nausea with vomiting, unspecified (3) Hyperemesis gravidarum Problem: Acute (4) Chest pain Problem: Acute
[2019-05-17] MEDS: ONDANSETRON HCL/PF 2 MG/ML VIAL IV SCH (21:04)
[2019-05-18] MEDS ORDERED: IBUPROFEN 600 MG TABLET PO PRN (00:32)
[2019-05-18] MEDS: ONDANSETRON HCL/PF 2 MG/ML VIAL IV SCH ×3 (00:40→07:22)
[2019-05-18] MEDS: POTASSIUM CHLORIDE 40 MEQ in NORMAL SALINE 1,000 ML IV SCH ×2 (02:14→10:46)
[2019-05-18 05:51] LABS: Bilirubin, Total 1.9 mg/dL (0.0-1.1); Ca. Corrected For Albumin 8.1 mg/dL (8.4-10.2); Calcium * 7.6 mg/dL (7.9-10.9); Carbon Dioxide 22.9 mmol/L (24-32.6); Potassium 2.9 mmol/L (3.4-4.6); Total Protein 5.7 gm/dL (6.2-8.2)
[2019-05-18 06:29] LABS: BUN/Creatinine Ratio 1.4 (9.0-21.6)
[2019-05-18] MEDS: POTASSIUM CHLORIDE 20 MEQ TABLET.SA PO SCH ×3 (08:19→17:04)
[2019-05-18] MEDS: FAMOTIDINE 20 MG in DEXTROSE 5 % IN WATER 100 ML IV SCH ×4 (10:46→23:25)
--- NOTE | 2019-05-18 11:00 | PN ---
Subjective - Date and Time Seen Date: 05/18/19 Time: 10:50 Subjective Narrative: I still have nausea and vomited after breakfast Objective Objective Narrative: 28-year-old female admitted for intractable vomiting, severe hypokalemia, moderate dehydration, was evaluated at bedside and was found to be afebrile and in no acute distress. Patient's hypokalemia has improved potassium has increased to 2.9 after multiple potassium replacements. However patient continues with persistent nausea and multiple episodes of vomiting that occurred after breakfast this morning, therefore antiemetics were changed and increased dosage. Follow-up lab was ordered to continue monitoring the potassium levels, we will see how she tolerates oral intake with lunch and dinner. Patient no longer has chest pain and EKG changes have improved since replacing potassium. - Review of Systems Generalized/Overall Review: Reports: No Symptoms Reported EENTM: Reports: No Symptoms Reported Respiratory: Reports: No Symptoms Reported Cardiac: Reports: No Symptoms Reported Abdominal: Reports: Nausea, Vomiting Genitourinary Symptoms: Reports: No Symptoms Reported Musculoskeletal Complaints: Reports: No Symptoms Reported Neurological: Reports: No Symptoms Reported Skin: Reports: No Symptoms Reported Endocrine: Reports: No Symptoms Reported - Vitals Vitals: Last Vital Signs Temp 36.8 C 05/18/19 08:10 Pulse 76 05/18/19 08:10 Resp 18 05/18/19 08:10 BP 116/78 05/18/19 08:10 Pulse Ox 99 05/18/19 08:10 - Abnormal Lab Findings Abnormal Lab Findings: Abnormal Lab Results 05/17/19 05/17/19 05/17/19 Range/Units 11:48 11:48 11:48 Hct 35.1 L (37.0-47.0) % Immature Gran % (Auto) 0.50 H (0.001-0.429) % Monocytes % 9.8 H (0.0-9) % Potassium 2.2 L* D (3.4-4.6) mmol/L Carbon Dioxide (24-32.6) mmol/L Anion Gap 18.0 H (6.8-13.8) mmol/L BUN 2 L (3-23) mg/dL BUN/Creatinine Ratio 2.7 L (9.0-21.6) Random Glucose 131 H (70-110) mg/dL Calcium (7.9-10.9) mg/dL Calcium Adj for Albumin (8.4-10.2) mg/dL Total Bilirubin 2.5 H (0.0-1.1) mg/dL Total Protein (6.2-8.2) gm/dL Albumin (3.4-5.0) gm/dl Maternal Serum HCG 17 H (0-6) mIU/mL 05/17/19 05/18/19 05/18/19 Range/Units 17:53 00:30 05:34 Hct (37.0-47.0) % Immature Gran % (Auto) (0.001-0.429) % Monocytes % (0.0-9) % Potassium 2.5 L 2.6 L 2.9 L (3.4-4.6) mmol/L Carbon Dioxide 22.9 L (24-32.6) mmol/L Anion Gap 14.0 H (6.8-13.8) mmol/L BUN 1 L (3-23) mg/dL BUN/Creatinine Ratio 1.4 L (9.0-21.6) Random Glucose (70-110) mg/dL Calcium 7.6 L (7.9-10.9) mg/dL Calcium Adj for Albumin 8.1 L (8.4-10.2) mg/dL Total Bilirubin 1.9 H (0.0-1.1) mg/dL Total Protein 5.7 L (6.2-8.2) gm/dL Albumin 3.0 L (3.4-5.0) gm/dl Maternal Serum HCG (0-6) mIU/mL - Exam Constitutional: Present: Alert, Oriented x3, Cooperative, Well developed, Well nourished, No distress, Acute distress ENT Exam: Present: normal ENT inspection, hearing grossly normal, pharynx normal, TMs normal Neck: Present: non-tender, full range of motion, supple, normal inspection, trachea midline Breasts: Present: Exam deferred Respiratory: Present: chest non-tender, lungs clear, normal breath sounds, no re spiratory distress, no accessory muscle use Cardiovascular/Chest: Present: normal peripheral pulses, regular rate, rhythm, no chest tenderness, no edema, no gallop, no JVD, no murmur, no rub Abdomen: Present: Normal bowel sounds, soft, nontender, nondistended, no rebound tenderness, no hepatospenomegaly, no masses /Rectal: Present: Exam deferred Extremity: Present: normal range of motion, non-tender, normal inspection, no pedal edema, no calf tenderness Skin Exam: Present: normal color, warm/dry, no cyanosis Lymphatic: Present: no adenopathy Neurologic: Present: bucket hooker II-XII nml as tested, normal cerebellar test, no m otor/sensory deficits, alert, normal mood/affect, oriented x 3 Appearance: Present: appropriate appearance, appropriate insight, neat, no memory impairment Eye contact: Present: cooperative, good eye contact, normal speech Thoughts: Present: normal thought pattern, no apparent hallucination Assessment/Plan Plan Narrative: We will continue to treat patient with potassium replacement and monitor for recurrence of vomiting after lunch or dinner. Follow-up lab has been ordered to be repeated within a few hours for evaluation of potassium levels. Patient's entire medics was also changed and increased to better control her symptoms. - Problems/Diagnosis (1) Hypokalemia due to loss of potassium Problem: Acute (2) Intractable nausea and vomiting Problem: Acute Qualifiers: Vomiting type: unspecified Qualified Code(s): R11.2 - Nausea with vomiting, unspecified (3) Hyperemesis gravidarum Problem: Acute (4) Chest pain Problem: Resolved
[2019-05-18] MEDS: POTASSIUM CHLORIDE IN WATER 100 ML IV SCH ×4 (11:21→15:24)
[2019-05-18] MEDS: PROCHLORPERAZINE MALEATE 10 MG TABLET PO SCH ×3 (11:22→23:25)
[2019-05-18 17:38] LABS: Albumin * 3.3 gm/dl (3.4-5.0); Anion Gap 12.8 mmol/L (6.8-13.8); BUN/Creatinine Ratio 2.2 (9.0-21.6); Bilirubin, Total 1.4 mg/dL (0.0-1.1); Ca. Corrected For Albumin 8.5 mg/dL (8.4-10.2); Calcium * 8.3 mg/dL (7.9-10.9); Carbon Dioxide 24.9 mmol/L (24-32.6); Potassium 3.7 mmol/L (3.4-4.6); Total Protein 6.5 gm/dL (6.2-8.2)
[2019-05-19] MEDS: PROCHLORPERAZINE MALEATE 10 MG TABLET PO SCH ×2 (04:47→11:33)
[2019-05-19] MEDS: POTASSIUM CHLORIDE 20 MEQ TABLET.SA PO SCH (08:50)
--- NOTE | 2019-05-19 09:38 | DS ---
(1) Hypokalemia due to loss of potassium Problem: Resolved (2) Intractable nausea and vomiting Problem: Resolved Qualifiers: Vomiting type: unspecified Qualified Code(s): R11.2 - Nausea with vomiting, unspecified (3) Hyperemesis gravidarum Problem: Chronic (4) Chest pain Problem: Resolved Description of Stay: 28-year-old female admitted for intractable nausea and vomiting, moderate dehydration, severe hypokalemia, was evaluated at bedside and was found to be afebrile and in no acute distress. Patient's nausea has improved after her antiemetics were changed and increased yesterday after rounds, she denies any recurrence of vomiting especially after breakfast this morning but says she still has residual nausea but he has improved significantly. Patient's chest discomfort also has resolved and her hypokalemia has resolved after multiple potassium replacements. Vitals are stable and patient denies any other symptoms. Therefore given this clinical picture patient will be discharged home with instructions to follow-up with her PCP as well as [employer] [facility]PER[employer]. She will be provided with a prescription for antiemetics to help with her nausea. Procedures Performed: none Results and Findings: Lab Pending Results 05/17/19 11:48: WBC 4.3, RBC 4.34, Hgb 12.5, Hct 35.1 L, MCV 80.9, MCH 28.8, MCHC 35.6, RDW 13.7, Plt Count 227, MPV 10.1, Immature Gran % (Auto) 0.50 H, Immature Gran # (Auto) 0.02, Neutrophils % 48.2, Lymphocytes % 39.1, Monocytes % 9.8 H, Eosinophils % 1.9, Basophils % 0.5, Nucleated RBC % 0.0, Neutrophils # 2.1, Lymphocytes # 1.68, Monocytes # 0.4, Eosinophils # 0.1, Absolute Basophils 0.0 05/17/19 11:48: Sodium 139, Plasma Sodium 139, Potassium 2.2 L* D, Chloride 98, Carbon Dioxide 25.2, Anion Gap 18.0 H, BUN 2 L, Creatinine 0.73, Est GFR (Non-Af Amer) 124, BUN/Creatinine Ratio 2.7 L, Random Glucose 131 H, Calcium 9.3, Calcium Adj for Albumin 9.1, Total Bilirubin 2.5 H, AST 31, ALT 63, Alkaline Phosphatase 81, Troponin I Less than 0.017, Total Protein 7.3, Albumin 3.8 05/17/19 11:48: Maternal Serum HCG 17 H 05/17/19 11:48: D-Dimer 0.35 D 05/17/19 17:53: Potassium 2.5 L 05/17/19 17:53: Magnesium 1.3 05/17/19 23:45: Troponin I 0.042 05/17/19 : Troponin I 0.031 05/18/19 00:30: Potassium 2.6 L 05/18/19 05:34: Sodium 139, Plasma Sodium 139, Potassium 2.9 L, Chloride 105, Carbon Dioxide 22.9 L, Anion Gap 14.0 H, BUN 1 L, Creatinine 0.72, Est GFR (Non- Af Amer) 126, BUN/Creatinine Ratio 1.4 L, Random Glucose 101, Calcium 7.6 L, Calcium Adj for Albumin 8.1 L, Total Bilirubin 1.9 H, AST 22, ALT 50, Alkaline Phosphatase 69, Total Protein 5.7 L, Albumin 3.0 L 05/18/19 17:12: Sodium 138, Plasma Sodium 139, Potassium 3.7 D, Chloride 104, Carbon Dioxide 24.9, Anion Gap 12.8, BUN 2 L D, Creatinine 0.89, Est GFR (Non-Af Amer) 99 D, BUN/Creatinine Ratio 2.2 L, Random Glucose 134 H D, Calcium 8.3, Calcium Adj for Albumin 8.5, Total Bilirubin 1.4 H, AST 22, ALT 57, Alkaline Phosphatase 74, Total Protein 6.5, Albumin 3.3 L Discharge Location: Home Disposition: Home self-care Condition: Good Face to Face Encounter completed per [facility] Guidelines: No Discharge Activity: Activity as tolerated Discharge Diet: General/regular food Prescriptions (Any new or edited meds): Prochlorperazine Maleate [Compazine] 10 mg PO Q6H PRN 14 Days #60 tablet PRN Reason: Nausea And Vomiting Complete Home Medications List: Complete Home Medication List: Prochlorperazine Maleate [Compazine] 10 mg PO Q6H PRN 14 Days #60 tablet 05/19/19
[2019-05-19] MEDS: FAMOTIDINE 20 MG in DEXTROSE 5 % IN WATER 100 ML IV SCH ×2 (11:29)
[2019-05-19 11:48] VITALS: BP 112/79
== END 2019-05-19 12:03 | disposition home or self-care (01) | DRG 779 ==
LOC: ER 11:24 → MS 11:24 → OBSVTOIN 14:06 → MS 14:45
PROVIDERS: ADMIT Family Medicine; ATTEND Family Medicine
DX: K59.00 Constipation, unspecified; O21.1 Hyperemesis gravidarum with metabolic disturbance; R07.9 Chest pain, unspecified; E86.0 Dehydration; O03.83 Metabolic disorder following complete or unspecified spontaneous abortion
CPT/HCPCS: 36415; 74019; 74020; 80053; 83735; 84132; 84484; 84702; 85025; 85379; 93005; 96361; 96365; 96366; 96375; 99284; J2405